=== PATIENT | female | born 1990 | race Caucasian/White ===

== ENCOUNTER 2016-08-08 21:31 | Emergency (ER) | payer BC, OTHER ==
[2016-08-08 21:43] VITALS: BP 154/73; PULSE 65; RESP 16; TEMP 99
[2016-08-08] MEDS ORDERED: ACETAMINOPHEN TAB 325 MG TAB PO STA (22:24)
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
--- NOTE | 2016-08-08 22:55 | CT ---
EXAM: CT Head Without Intravenous Contrast CLINICAL HISTORY: Reason: Pain TECHNIQUE: Axial computed tomography images of the head/brain without intravenous contrast. CTDI is 60.30 mGy and DLP is 1108.40 mGy-cm This CT exam was performed using one or more of the following dose reduction techniques: automated exposure control, adjustment of the mA and/or kV according to patient size, and/or use of iterative reconstruction technique. COMPARISON: No relevant prior studies available. FINDINGS: Brain: Unremarkable. No hemorrhage. No significant white matter disease. No edema. Ventricles: Unremarkable. No ventriculomegaly. Bones/joints: Unremarkable. No acute fracture. Soft tissues: Unremarkable. Sinuses: Minimal mucosal thickening noted in the maxillary sinuses. Mastoid air cells: Nonspecific filling of several inferior left mastoid air cells. The right mastoid air cells are clear. IMPRESSION: 1. No acute intracranial abnormality is identified. 2. Minimal maxillary sinus and left mastoid disease. EXAM: CT Cervical Spine Without Intravenous Contrast CLINICAL HISTORY: Reason: Pain TECHNIQUE: Axial computed tomography images of the cervical spine without intravenous contrast. CTDI is 32.60 mGy and DLP is 574.90 mGy-cm This CT exam was performed using one or more of the following dose reduction techniques: automated exposure control, adjustment of the mA and/or kV according to patient size, and/or use of iterative reconstruction technique. COMPARISON: No relevant prior studies available. FINDINGS: Vertebrae: There is straightening of the normal cervical lordosis, nonspecific. No acute fracture. Discs/spinal canal/neural foramina: No acute findings. Alignment is maintained. No spinal canal stenosis. Soft tissues: Unremarkable. Lung apices: Unremarkable as visualized. IMPRESSION: 1. No acute osseous abnormality is seen. 2. Clinical clearance of the cervical spine is still recommended.
== END 2016-08-08 22:50 | disposition home or self-care (01) ==
LOC: EC 21:31
DX: S00.93XA Contusion of unspecified part of head, initial encounter (principal); M54.2 Cervicalgia; Y04.0XXA Assault by unarmed brawl or fight, initial encounter; Y08.89XA Assault by other specified means, initial encounter; Y92.69 Other specified industrial and construction area as the place of occurrence of the external cause; Y99.0 Civilian activity done for income or pay
CPT/HCPCS: 70450; 72125; 99284

== ENCOUNTER → 2016-08-29 | Outpatient (CLI) | payer BC, OTHER ==
--- NOTE | 2016-08-29 15:18 | CT ---
EXAMINATION TYPE: CT sinus wo con DATE OF EXAM: 08/29/2016 3:12 PM COMPARISON: NONE HISTORY: Right sided hearing loss and facial pressure CT DLP: 660.[address] of the paranasal sinuses was performed in the axial and coronal planes. Bone and soft tissue settings are submitted. The paranasal sinuses demonstrate normal aeration and development. Mild mucoperiosteal thickening of the maxillary sinuses. The paranasal sinuses are free of mucosal thickening or air fluid level. The osteal meatal units are patent bilaterally. The nasal septum is midline. No bony destructive changes are seen within the field of view. IMPRESSION: Mild mucoperiosteal thickening of the maxillary sinuses.
== END | disposition home or self-care (01) ==
LOC: RADCTMAIN 14:56
PROVIDERS: ATTEND Family Medicine
DX: J34.89 Other specified disorders of nose and nasal sinuses (principal)
CPT/HCPCS: 70486

== ENCOUNTER → 2016-09-17 | Outpatient (CLI) | payer BC, OTHER ==
--- NOTE | 2016-09-17 14:43 | XR ---
EXAMINATION TYPE: XR Hip Complete RT DATE OF EXAM: 09/17/2016 COMPARISON: NONE HISTORY: Right hip pain TECHNIQUE: 2 view right hip FINDINGS: Joint space appears preserved. Femoral head articulates with the acetabulum. No acute fract ures are evident. IMPRESSION: 1. Normal two-view right hip
== END | disposition home or self-care (01) ==
LOC: RADXRMAIN 14:07
PROVIDERS: ATTEND Family Medicine
DX: M25.551 Pain in right hip (principal)
CPT/HCPCS: 73502

== ENCOUNTER → 2020-04-21 | Outpatient (CLI) | payer OTHER ==
--- NOTE | 2020-04-21 13:01 | US ---
EXAMINATION TYPE: Transabdominal DATE OF EXAM: 04/21/2020 12:34 PM COMPARISON: NONE CLINICAL HISTORY: Z36 CONFIRM DATES. Positive beta hCG test. EXAM PERFORMED: Transabdominal (TA) EXAM MEASUREMENTS: GESTATIONAL AGE / DATING Physician Established: Not yet established Dates by LMP: 01/26/2020 (12 weeks/2 days) EDC: 11/01/2020 Dates by First Scan: No previous this is first scan Dates by Current Scan for: (12 weeks/3 days) EDC: 10/28/2020 MATERNAL ANATOMY Uterus: 13.0 x 8.1 x 9.8 cm Right Ovary: 2.8 x 3.4 x 1.7 cm Left Ovary: 2.3 x 1.8 x 1.6 cm Post CDS / Adnexa: wnl Presence of free fluid: none GESTATION / SURVEY CRL: 6.3 cm (12 weeks/6 days) Yolk Sac (normal less than 6mm): not seen Heart Rate: 153 bpm Rhythm: Normal IUP: Viable IUP Date of LMP: 01/26/2020 Beta HcG (if available): not available Viable IUP that correlates with LMP. Single live intrauterine gestation confirmed as gestational sac and pole seen. Yolk sac not ace sage identified. No free fluid in pelvic cul-de-sac. Both ovaries seen. No suspicious extra ovarian adnexal mass noted. IMPRESSION: Single live intrauterine gestation confirmed, mean crown-rump length 6.3 cm corresponding to 12 weeks 6 day old fetus.
== END | disposition home or self-care (01) ==
LOC: RADUSWWP 12:12
PROVIDERS: ATTEND Obstetrics & Gynecology
DX: Z36.9 Encounter for antenatal screening, unspecified (principal); Z3A.12 12 weeks gestation of pregnancy
CPT/HCPCS: 76801

== ENCOUNTER 2020-10-12 15:51 | Outpatient (CLI) | payer OTHER ==
--- NOTE | 2020-10-12 17:16 | US ---
EXAMINATION TYPE: US OB limited DATE OF EXAM: 10/12/2020 COMPARISON: First trimester ultrasound April 21, 2020 CLINICAL HISTORY: Oligohydramnios. KUSH only per order EXAM PERFORMED: Transabdominal (TA) GESTATIONAL AGE / DATING Physician Established: (37 weeks/0 days) EDC: 01/27/2020 No growth performed on today?s study per ordering physician KUSH: 16.2 cm Normal HEART RATE: 147 bpm RHYTHM: Normal Single live intrauterine gestation redemonstrated. IMPRESSION: As above. Estimated KUSH within normal limits.
== END 2020-10-12 16:45 | disposition home or self-care (01) ==
LOC: FBPOP 15:51
PROVIDERS: ATTEND Obstetrics & Gynecology
DX: O41.03X0 Oligohydramnios, third trimester, not applicable or unspecified (principal); Z3A.37 37 weeks gestation of pregnancy
CPT/HCPCS: 59025; 76815; G0463; 99213

== ENCOUNTER 2020-10-27 05:48 | Inpatient (IN) | payer OTHER ==
[2020-10-27] MEDS ORDERED: LIDOCAINE 0.5% (PF) 5 MG/ML (50 ML SDV) SQ PRN (06:06)
[2020-10-27] MEDS ORDERED: METHYLERGONOVINE 0.2 MG/ML 1 ML AMP IM PRN (06:06)
[2020-10-27] MEDS ORDERED: CARBOPROST TROMETHAMINE 250 MCG/ML 1 ML AMP IM PRN (06:06)
[2020-10-27] MEDS ORDERED: TERBUTALINE 1 MG/ML VIAL SQ PRN (06:06)
[2020-10-27] MEDS ORDERED: OXYTOCIN 10 UNIT/ML 1 ML VIAL IM PRN (06:06)
[2020-10-27] MEDS ORDERED: OXYTOCIN 30 UNITS/500 ML NS 30 UNIT in SALINE 1 500ML.BAG IV SCH ×2 (06:15→09:45)
[2020-10-27] MEDS: LACTATED RINGERS 1,000 ML IV SCH ×2 (06:20→07:05)
[2020-10-27 06:23] LABS: Basophils # (A) 0.1 k/uL (0-0.2); Basophils % (A) 1 %; Eosinophils # (A) 0.2 k/uL (0-0.7); Eosinophils % (A) 2 %; HGB 12.5 gm/dL (11.4-16.0); Lymphocytes % (A) 20 %; MCH 29.7 pg (25.0-35.0); MCHC 33.8 g/dL (31.0-37.0); Mean Platelet Volume 9.5; Monocytes # (A) 0.3 k/uL (0-1.0); Monocytes % (A) 3 %; Neutrophils # (A) 7.4 k/uL (1.3-7.7); Neutrophils % (A) 74 %; Platelet Count 203 k/uL (150-450); RBC 4.21 m/uL (3.80-5.40); RDW 13.1 % (11.5-15.5)
[2020-10-27] MEDS ORDERED: AMPICILLIN 2,000 MG in SODIUM CHLORIDE 0.9% 100 ML IVPB ONE (06:30)
[2020-10-27] MEDS ORDERED: ROPIVACAINE 100 MG, fentaNYL (PF). 200 MCG in SODIUM CHLORIDE 0.9% 76 ML EPIDURAL ONE (07:15)
--- NOTE | 2020-10-27 07:19 | P.HPOB ---
History of Present Illness H&P Date: 10/27/20 Chief Complaint: labor 29 year old presents at 39 weeks and 2 days in active labor. HEr cervix is 7/100/0. She is pato every few minutes. heart tones 140 with moderate variability and reactive. Review of Systems All systems: negative Constitutional: Denies chills, Denies fever Eyes: denies blurred vision, denies pain Ears, nose, mouth and throat: Denies headache, Denies sore throat Cardiovascular: Denies chest pain, Denies shortness of breath Respiratory: Denies cough Gastrointestinal: Denies abdominal pain, Denies diarrhea, Denies nausea, Denies vomiting Genitourinary: Denies dysuria, Denies hematuria Musculoskeletal: Denies myalgias Integumentary: Denies pruritus, Denies rash Neurological: Denies numbness, Denies weakness Psychiatric: Denies anxiety, Denies depression Endocrine: Denies fatigue, Denies weight change Past Medical History Past Medical History: No Reported History Additional Past Medical History / Comment(s): BLOOD CLOT LEFT LEG- has been on lovenox during this History of Any Multi-Drug Resistant Organisms: None Reported Past Surgical History: No Surgical Hx Reported Past Anesthesia/Blood Transfusion Reactions: No Reported Reaction Past Psychological History: No Psychological Hx Reported Smoking Status: Never smoker Past Alcohol Use History: None Reported Past Drug Use History: None Reported - Past Family History Father Family Medical History: Diabetes Mellitus Medications and Allergies Home Medications Medication Instructions Recorded Confirmed Type Enoxaparin [Lovenox] 40 mg SQ DAILY 10/12/20 10/12/20 History Pedi Multivit No.25/Folic Acid 1 tab PO ONCE 10/12/20 10/12/20 History [Flintstones Multivit Chew Tab] Allergies Allergy/AdvReac Type Severity Reaction Status Date / Time No Known Allergies Allergy Verified 10/27/20 06:05 Exam Osteopathic Statement: *. No significant issues noted on an osteopathic structural exam other than those noted in the History and Physical/Consult. Vital Signs Temp Pulse Resp BP Pulse Ox 10/27/20 06:14 97.1 F L 88 16 119/71 98 Intake and Output 10/26/20 10/27/20 10/27/20 22:59 06:59 14:59 Other: Weight 129.727 kg Heart: Regular rate and rhythm Lungs: Clear to auscultation bilaterally Abdomen: Soft, nontender Extremities: Negative Homans sign Results Result Diagrams: 10/27/20 06:05 Assessment and Plan (1) Normal labor Current Visit: Yes Status: Acute Code(s): O80 - ENCOUNTER FOR FULL-TERM UNCOMPLICATED DELIVERY; Z37.9 - OUTCOME OF DELIVERY, UNSPECIFIED SNOMED Code(s): 45205885 (2) Positive GBS test Current Visit: Yes Status: Acute Code(s): B95.1 - STREPTOCOCCUS, GROUP B, CAUSING DISEASES [facility] SNOMED Code(s): 889975053 Plan: 1. admit to [facility] 2. antibiotics for GBS ppx 3. expectant management 4. anticipate normal vaginal delivery
[2020-10-27] MEDS ORDERED: diphenhydrAMINE 50 MG CAP PO PRN (09:43)
[2020-10-27] MEDS ORDERED: diphenhydrAMINE 50 MG/ML 1 ML VIAL IVP PRN ×2 (09:43)
[2020-10-27] MEDS ORDERED: ZOLPIDEM 5 MG TAB PO PRN (09:43)
[2020-10-27] MEDS ORDERED: BENZOCAINE/MENTHOL SPRAY 1 GM/SPRAY AEROSOL TOPICAL PRN (09:43)
[2020-10-27] MEDS ORDERED: diphenhydrAMINE 25 MG CAP PO PRN (09:43)
[2020-10-27] MEDS ORDERED: ACETAMINOPHEN TAB 325 MG TAB PO PRN (09:43)
[2020-10-27] MEDS ORDERED: LANOLIN CREAM 5 GM TUBE TOPICAL PRN (09:43)
[2020-10-27] MEDS ORDERED: HYDROCORTISONE 2.5% RECTAL CREAM 30 GM TUBE RECTAL PRN (09:43)
[2020-10-27] MEDS ORDERED: SIMETHICONE 80 MG CHEWABLE PO PRN (09:43)
[2020-10-27] MEDS: IBUPROFEN 600 MG TAB PO SCH ×3 (10:07→23:12)
[2020-10-27] MEDS ORDERED: AMPICILLIN 1,000 MG in SODIUM CHLORIDE 0.9% 50 ML IVPB SCH (10:30)
--- NOTE | 2020-10-27 12:44 | P.PROBDLV ---
Vaginal Delivery Note - . Vaginal Delivery Note: 29 year old presents at 39 weeks and 2 days in active labor. HEr cervix is 7/100/0. She is pato every few minutes. heart tones 140 with moderate variability and reactive. Antibiotics were started for GBS prophylaxis. Amniotomy performed at 7:12 AM, clear fluid noted. Patient presented to complete, pushed and delivered a viable male over intact perineum at 8:54 AM. Head delivered OA, nuchal cord 1 unable to be reduced, patient delivered through it with anterior shoulder delivered gentle downward guidance of the posterior shoulder and rest of body. Nose and mouth bulb suctioned, cord clamped and cut, infant placed mother's abdomen. Apgars 9, 9, weight 8 pounds. Placenta delivered spontaneously, intact with three-vessel cord at 8:58 AM. Vagina, cervix, and perineum were inspected. No lacerations noted. Estimated blood loss 200 mL. Mother and baby in stable condition.
[2020-10-27] MEDS: SENNOSIDES-DOCUSATE SODIUM 1 EACH TAB PO SCH (19:37)
[2020-10-27] MEDS: ENOXAPARIN 40 MG/0.4 ML SYRINGE SQ SCH (21:17)
[2020-10-28 04:30] LABS: Basophils % (A) 0 %; Eosinophils # (A) 0.1 k/uL (0-0.7); Eosinophils % (A) 1 %; HCT 33.5 % (34.0-46.0); Lymphocytes # (A) 2.4 k/uL (1.0-4.8); Lymphocytes % (A) 21 %; MCH 29.9 pg (25.0-35.0); MCHC 32.8 g/dL (31.0-37.0); MCV 90.9 fL (80.0-100.0); Mean Platelet Volume 9.1; Monocytes # (A) 0.4 k/uL (0-1.0); Monocytes % (A) 4 %; Neutrophils # (A) 8.4 k/uL (1.3-7.7); Neutrophils % (A) 73 %; Platelet Count 196 k/uL (150-450); RBC 3.68 m/uL (3.80-5.40); RDW 13.6 % (11.5-15.5); WBC 11.6 k/uL (3.8-10.6)
[2020-10-28] MEDS: IBUPROFEN 600 MG TAB PO SCH ×3 (08:43→16:35)
[2020-10-28] MEDS: SENNOSIDES-DOCUSATE SODIUM 1 EACH TAB PO SCH ×2 (08:43→20:29)
--- NOTE | 2020-10-28 11:58 | P.DS ---
Providers Date of admission: 10/27/20 05:48 Expected date of discharge: 10/29/20 Attending physician: Mitzy Padilla Primary care physician: Stated None Hospital Course: This is a 29-year-old female 3 para 2 at 39-2/7 weeks who presented for induction of labor. She delivered vaginally a viable male infant on 10/27/2020 with scores of 9 at 1 minute and 9 at 5 minutes and infant weight of 8 pounds 1.5 ounces. Her course has been uncomplicated. Lochia is decreasing. She is breast-feeding. Baby does need to be watched one more day since she did not have antibiotics in for more than 4 hours prior to delivery. Vital signs are stable. Abdomen is soft with fundus firm and nontender. Extremities show negative Homans. Impression is status post vaginal delivery day #1. Plan is to discharge home tomorrow morning. Routine instructions are given. She will be given a prescription for ibuprofen and a breast pump. She is advised to call the office if she has any further questions or concerns prior to her visit. She will follow up in the office in [address] Padilla. Procedures: Oxytocin induction of labor Spontaneous vaginal delivery of a viable male infant on 10/27/2020 Patient Condition at Discharge: Stable Plan - Discharge Summary New Discharge Prescriptions: New Ibuprofen [Motrin] 600 mg PO Q6H #60 tab Continue Pedi Multivit No.25/Folic Acid [Flintstones Multivit Chew Tab] 1 tab PO ONCE Enoxaparin [Lovenox] 40 mg SQ DAILY Discharge Medication List Enoxaparin [Lovenox] 40 mg SQ DAILY 10/12/20 [History] Pedi Multivit No.25/Folic Acid [Flintstones Multivit Chew Tab] 1 tab PO ONCE 10/12/20 [History] Ibuprofen [Motrin] 600 mg PO Q6H #60 tab 10/28/20 [Rx] Follow up Appointment(s)/Referral(s): Mitzy Padilla DO [Doctor of Osteopathic Medicine] - 12/06/20 10:45 am Activity/Diet/Wound Care/Special Instructions: Instructions 1. Do not begin any exercise program for 3 weeks. 2. Do not resume sexual relations for 3 weeks or longer if uncomfortable. 3. You may take tub baths or showers at any time. 4. You may use tampons if desired after 3 weeks. 5. Keep the area of episiotomy (stitches) clean and dry. 6. If you are not nursing, wear a good fitting, supportive bra during the day and limit fluid intake for at least 1 week to prevent breast engorgement. 7. Call the office, [phone], within the next week to make appointment for your 6 week checkup if it has not already been made. 8. Report any of the following occurrences to the doctor promptly: a. Heavy, excessive bleeding b. Chills, fever c. Burning or frequency of urination d. Pain or redness and breasts if nursing e. Increasing pain or swelling in episiotomy (stitches). In addition to the above instructions, the following additional should be followed: 1. No heavy lifting or straining (exercising) until after 6 week checkup. 2. Keep abdominal incision clean and dry: You may wear a dressing if more comfortable. 3. Make office appointment for 10 days after going home or as instructed by her doctor. Discharge Disposition: HOME SELF-CARE
[2020-10-28] MEDS: ENOXAPARIN 40 MG/0.4 ML SYRINGE SQ SCH (20:30)
[2020-10-29] MEDS: IBUPROFEN 600 MG TAB PO SCH ×2 (00:21→06:35)
[2020-10-29 08:17] VITALS: BP 124/84; PULSE 96; RESP 20; TEMP 98.4
[2020-10-29] MEDS: SENNOSIDES-DOCUSATE SODIUM 1 EACH TAB PO SCH (08:18)
== END 2020-10-29 10:25 | disposition home or self-care (01) | DRG 807 ==
LOC: 4FBP 05:48
PROVIDERS: ADMIT Obstetrics & Gynecology; ATTEND Obstetrics & Gynecology
PROC: 10E0XZZ Delivery of Products of Conception, External Approach (ICD-10-PCS; principal; 2020-10-27)
DX: O69.81X0 Labor and delivery complicated by cord around neck, without compression, not applicable or unspecified (principal); Z37.0 Single live birth; O99.824 Streptococcus B carrier state complicating childbirth; Z3A.39 39 weeks gestation of pregnancy; Z83.3 Family history of diabetes mellitus
CPT/HCPCS: 85025; 86850; 86900; 86901; 88307

== ENCOUNTER → 2021-11-15 | Outpatient (CLI) | payer OTHER ==
--- NOTE | 2021-11-15 13:10 | XR ---
EXAMINATION TYPE: XR chest 2V, XR thoracic spine 5 views complete DATE OF EXAM: 11/15/2021 COMPARISON: None HISTORY: 31-year-old female lifting injury today, upper back pain. S29.002A, S23.3XXA FINDINGS: CHEST: Heart upper limits of normal in size, likely accentuated due to portable AP technique. Hazy mid and l ower lung densities related to overlying soft tissue. No jai consolidation, pneumothorax, or pleura l effusion. THORACIC SPINE: Suggestion of mild disc space narrowing mid thoracic spine. Vertebral body heights are preserved and alignment is maintained. Some limitation in visualization of the uppermost thoracic vertebral bodies due to overlying shoulders. IMPRESSION: 1. Chest: No acute cardiopulmonary process. 2. Thoracic spine: Slightly limited upper thoracic vertebra due to overlying shoulders. No visualized vertebral compression collapse or malalignment.
== END | disposition home or self-care (01) ==
LOC: RADXRMAIN 12:46
PROVIDERS: ATTEND Emergency Medicine
DX: S29.002A Unspecified injury of muscle and tendon of back wall of thorax, initial encounter (principal); S23.3XXA Sprain of ligaments of thoracic spine, initial encounter
CPT/HCPCS: 71046; 72072

== ENCOUNTER → 2021-12-08 | Outpatient (CLI) | payer OTHER ==
--- NOTE | 2021-12-08 16:08 | MR ---
EXAMINATION TYPE: MR cervical spine wo con DATE OF EXAM: 12/08/2021 COMPARISON: None HISTORY: Neck pain and stiffness with left arm numbness due to lifting injury at work. TECHNIQUE: Multiecho multiplanar images of the cervical spine were obtained without contrast. FINDINGS: Craniovertebral junction relationships and prevertebral soft tissues are normal. The cervical vertebral segments are normal in height and alignment and there is no fracture or sublux ation. The disc spaces are well-maintained in height and signal intensity and there is no significant degene rative disc disease. There is no cervical disc herniation. There is no cervical stenosis in the cervical cord is normal in size and signal intensity. There are no paraspinal or epidural soft tissue masses or fluid collections. The neuroforamina are patent. IMPRESSION: No evidence abnormality seen.
== END | disposition home or self-care (01) ==
LOC: RADMRIMAIN 12:17
PROVIDERS: ATTEND Emergency Medicine
DX: S29.002D Unspecified injury of muscle and tendon of back wall of thorax, subsequent encounter (principal); S23.3XXD Sprain of ligaments of thoracic spine, subsequent encounter; S46.812D Strain of other muscles, fascia and tendons at shoulder and upper arm level, left arm, subsequent encounter; S19.9XXD Unspecified injury of neck, subsequent encounter; M47.22 Other spondylosis with radiculopathy, cervical region; M54.2 Cervicalgia; R20.0 Anesthesia of skin; X50.0XXD Overexertion from strenuous movement or load, subsequent encounter
CPT/HCPCS: 72141

== ENCOUNTER → 2022-12-11 | Outpatient (CLI) | payer OTHER ==
--- NOTE | 2022-12-11 21:28 | XR ---
EXAMINATION TYPE: XR lumbar spine 2 or 3V DATE OF EXAM: 12/11/2022 7:05 PM CLINICAL INDICATION:Female, 32 years old with history of M99.03 M25.551 M54.10 M54.50; [facility] COMPARISON: None TECHNIQUE: Frontal, lateral and coned in L5-S1 lateral views of the spine. FINDINGS: No evidence of any acute osseous pathology. No evidence of loss of vertebral body height i s seen. There is normal alignment of the lumbar vertebral bodies. Minimal disc space narrowing most p ronounced at L5-S1. Multilevel marginal osteophyte formation throughout the visualized spine most pro nounced at L5-S1. There is facet joint arthropathy throughout the spine. L5-S1 at least mild neural f oraminal stenosis. IMPRESSION: 1. No acute fracture. 2. Mild multilevel disc degeneration.
--- NOTE | 2022-12-11 21:29 | XR ---
EXAMINATION TYPE: XR Hip Bilateral Complete DATE OF EXAM: 12/11/2022 7:06 PM CLINICAL INDICATION:Female, 32 years old with history of M99.03 M25.551 M54.10 M54.50; [facility] COMPARISON: None. TECHNIQUE: The bilateral hips were examined in the frontal and lateral projections and a AP pelvis. FINDINGS: No evidence for acute process, joint dislocation or significant soft tissue swelling. IMPRESSION: 1. No acute process. 2. No significant degeneration changes.
== END | disposition home or self-care (01) ==
LOC: RADXRMAIN 16:16
PROVIDERS: ATTEND Chiropractor
DX: M99.03 Segmental and somatic dysfunction of lumbar region (principal); M51.16 Intervertebral disc disorders with radiculopathy, lumbar region; M25.551 Pain in right hip
CPT/HCPCS: 72100; 73521